=== PATIENT | male | born 1995 ===

== ENCOUNTER → 2016-11-02 | Outpatient (CLI) | payer OTHER ==
--- NOTE | 2016-11-02 12:46 | CPEEG ---
[f rep st] ELECTROENCEPHALOGRAM DATE OF STUDY: 11/02/2016 INTERPRETATION: Normal EEG during wakefulness and sleep. There were there were no potentially epil eptogenic abnormalities present during the recording. REPORT: This EEG contains 9-10 Hz alpha activity over the posterior head regions. There was no abn ormal activation at rest, during photic stimulation, or hyperventilation. The patient became drowsy during the study and fell asleep. There was no abnormal epileptiform activation during drowsiness, sleep, or during times of arousal. The patient did have the nonspecific activation of rhythmic tem poral theta of drowsiness (RTTD) over the left temporal head region during drowsiness, in a single b urst. This finding is of no clinical significance. /[id number]/MODL
== END ==
LOC: FCPNEURO 09:25
PROVIDERS: ATTEND Psychiatry & Neurology Neurology
DX: R56.9 Unspecified convulsions (principal)